=== PATIENT | male | born 2000 | race Caucasian/White ===

== ENCOUNTER 2023-12-11 17:39 | Emergency (ER) | payer BC, SELFPAY ==
[2023-12-11 17:55] VITALS: BP 133/79; PULSE 101; RESP 18; TEMP 37.3; O2SAT 100
--- NOTE | 2023-12-11 17:59 | ED.URI ---
HPI - URI/Sore Throat General Chief Complaint: Upper Respiratory Infection Stated Complaint: SORE THROAT Time Seen by Provider: 12/11/23 17:54 Source: patient and RN notes reviewed Mode of arrival: ambulatory Limitations: no limitations History of Present Illness HPI Narrative: Patient presents today complaining of a one-week history of headache, fatigue, nasal congestion, sore throat, decreased appetite, sweats. Reports all symptoms except the sore throat have been improving over the last couple of days, but the sore throat has stayed consistent. He believes he has some tonsil stones as well. He has been taking Tylenol and ibuprofen for symptoms. Reports exposure to COVID at work by at least 2 people. Related Data Home Medications Medication Instructions Recorded Confirmed No Home Medications 12/11/23 12/11/23 Allergies Allergy/AdvReac Type Severity Reaction Status Date / Time No Known Allergies Allergy Verified 12/11/23 17:50 Review of Systems Review of Systems: CONSTITUTIONAL: Denies body aches, fever, chills. + sweats, fatigue EYES: Denies visual changes, redness, or discharge. ENT: Denies rhinorrhea,or otalgia.+ congestion, sore throat CARDIOVASCULAR: Denies chest pain, palpitations, or edema. RESPIRATORY: Denies cough or dyspnea. GASTROINTESTINAL: Denies abdominal pain, nausea, vomiting, or diarrhea. GENITOURINARY: Denies dysuria or hematuria. SKIN: Denies rash, itching, or wounds. MUSCULOSKELETAL: Denies back pain, joint pain, or myalgia. NEUROLOGIC: Denies numbness, tingling, or weakness.+ headache PSYCH: Denies depression or anxiety. PMFSH Comments At time of signature, I have reviewed and agree with nursing past medical, surgical, social and family history unless otherwise noted. Please see nursing chart for further information. There is no relevant family history pertinent to the presenting complaint Exam Narrative: GENERAL: Well-appearing, well-nourished, and in no acute distress. HEAD: Normocephalic, atraumatic. EYES: EOMI. No redness or drainage. Conjunctivae normal. ENT: Mucous membranes pink and moist. Nares clear. No rhinorrhea. TMs normal bilaterally. Throat mildly erythematous without edema or exudate. Tonsils 1 to 2+. Uvula midline. NECK: Normal AROM. Supple. No lymphadenopathy. CHEST: No respiratory distress. Clear to auscultation. HEART: Regular rate and rhythm. No murmur appreciated. EXTREMITIES: Normal range of motion. No edema. SKIN: Warm, dry, no rash. Capillary refill normal. Normal skin turgor. NEURO: No focal deficits. Alert and oriented x3. Gait steady. PSYCH: Normal affect. No signs of depression or anxiety. Course Course Level of Care: Express Care Visit Vital Signs Vital signs: Vital Signs Temperature 99.1 F 12/11/23 17:55 Pulse Rate 101 H 12/11/23 17:55 Respiratory Rate 18 12/11/23 17:55 Blood Pressure 133/79 12/11/23 17:55 Pulse Oximetry 100 12/11/23 17:55 Temperature 99.1 F 12/11/23 17:55 Pulse Rate 101 H 12/11/23 17:55 Respiratory Rate 18 12/11/23 17:55 Blood Pressure 133/79 12/11/23 17:55 Pulse Oximetry 100 12/11/23 17:55 Reviewed MDM - URI/Sore Throat MDM Narrative Medical decision making narrative: Rapid strep negative. Culture pending. Symptoms likely viral in etiology. Discussed [id number] medication use and duration of illness. No prescription medications indicated at this time. Anticipatory guidance given. Differential Diagnosis Differential diagnosis: Likely upper respiratory infection, viral infection, pharyngitis and other (Strep throat) Lab Data Attestation: I reviewed the patient's lab results. Labs: Strep Screen Presumptive Negative *(Reference Range: Negative)* Critical Care Time Critical Care Time Critical Care Time: No Discharge Plan Discharge Clinical Impression: Viral syndrome Pharyngitis Quali
== END 2023-12-11 18:19 | disposition home or self-care (01) ==
PROVIDERS: Emergency Provider Nurse Practitioner
DX: B34.9 Viral infection, unspecified (principal); J02.9 Acute pharyngitis, unspecified
CPT/HCPCS: 87081; 87880; 99213; G0463